=== PATIENT | male | born 1970 | race Hispanic/Latino ===

== ENCOUNTER → 2018-03-28 | Outpatient (CLI) | payer OTHER ==
--- NOTE | 2018-03-28 11:18 | Diagnostic Imaging Report ---
PROCEDURE:X-RAY RIGHT HEEL COMPARISON:None. INDICATIONS:HEEL PAIN FINDINGS: BONES: Normal mineralization. No acute , displaced fracture or dislocation. Joint spaces are within normal limits. SOFT TISSUES:Negative. OTHER:Moderate anterior calcaneal enthesophyte.. CONCLUSION: No acute abnormalities. Moderate anterior calcaneal enthesophyte. Elfego Jimenez M.D. Dictated by: Elfego Jimenez M.D. on 03/28/2018 at 11:28 Electronically approved by: Elfego Jimenez M.D. on 03/28/2018 at 11:28
--- NOTE | 2018-03-28 12:29 | Diagnostic Imaging Report ---
PROCEDURE:L-SPINE COMPLETE COMPARISON:None. INDICATIONS:BACK PAIN FINDINGS: There are 5 lumbar-type vertebral bodies. The vertebral bodies are well-aligned without evidence of spondylolisthesis. There are no acute, displaced fractures, lytic or blastic lesions. The vertebral body heights and intervertebral disc-spaces are well-maintained. Bilateral oblique views show questionable L5-S1 spondylolysis. The sacroiliac joints are unremarkable. CONCLUSION: Questionable L5-S1 spondylolysis. No spondylolisthesis. No acute abnormalities. Elfego Jimenez M.D. Dictated by: Elfego Jimenez M.D. on 03/28/2018 at 12:38 Electronically approved by: Elfego Jimenez M.D. on 03/28/2018 at 12:38
== END ==
LOC: RAD 10:08
PROVIDERS: ATTEND Family Medicine
DX: M79.671 Pain in right foot (principal); M54.5 Low back pain
CPT/HCPCS: 72110